=== PATIENT | male | born 1980 | race Caucasian/White ===

== ENCOUNTER 2017-01-06 18:45 | Emergency (ER) | payer MEDICAID ==
[2017-01-06 18:52] VITALS: RESP 16; TEMP 97.9
[2017-01-06] MEDS ORDERED: NS 1,000 ML IV ONE (19:46)
--- NOTE | 2017-01-06 19:46 | EDPHY ---
HPI/HX/ROS/PE/MDM Narrative: CHIEF COMPLAINT: Joint pain HPI: The patient is a 36 y/o male complaining of bone and joint pain and muscle weakness onset 2 to 3 weeks ago. He has pain in the bones and joints of his fingers, hands, elbows, neck, and legs with the worst pain localized to his neck. His weakness makes getting out of bed, showering, and working difficult. He has had difficulty sleeping for the past 3 to 4 days. He has tried Advil, Tylenol, and melatonin without significant improvement in symptoms. He does not that the pain is worse when he takes his antidepressant (Zoloft). He denies recent fever, rhinorrhea, cold, or other associated symptoms. REVIEW OF SYSTEMS: Aside from elements discussed in the HPI, a comprehensive 10-point review of systems was reviewed and is negative. 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 ENT:Eyes are normal to inspection. ENT inspection normal. Neck: Normal inspection. Full range of motion. No tenderness. Respiratory:No respiratory distress. Breath sounds normal bilaterally. Cardiovascular: Regular rate and rhythm. Normal cap refill. Abdomen:The abdomen is nontender to palpation. There are no peritoneal signs. There are normal bowel sounds. Back: Normal to inspection. No tenderness to palpation. Skin: Normal color. No rash. Warm and dry. Extremities: Normal appearance. Full range of motion. Neuro: Oriented x3. Normal motor function. Normal sensory function. ED Course: Labs are within normal limits. I reassessed patient and advised him to follow- up with his PCP for unimproved symptoms. Return precautions given. Patient agrees to this course of action. MDM: This is a relatively young healthy male with two weeks of diffuse myalgias and arthralgias. Despite this, he has a completely normal physical exam, with no apparent objective weakness, joint inflammation or limited ROM. I considered flu, but the symptoms have lasted two weeks, with no fever or infectious symptoms. I explained to the patient that we would perform screening labs for a medical emergency - these are thankfully negative. There is no evidence of leukocytosis, kidney or electrolyte abnormality. CK is normal. I think the patient would benefit from an auto-immune workup as an outpatient. The patient was treated with Toradol. He requested pain medication to help him sleep - I agreed to provide a very short of course of Lansford. - Data Points Laboratory Results: Laboratory Results 01/06/17 19:58 01/06/17 19:58 01/06/17 01/06/17 19:58 19:58 WBC 10.56 10^3/uL H 10^3/uL (3.80-9.50) RBC 5.18 10^6/uL 10^6/uL (4.40-6.38) Hgb 15.1 g/dL g/dL (13.7-17.5) Hct 44.4 % % (40.0-51.0) MCV 85.7 fL fL (81.5-99.8) MCH 29.2 pg pg (27.9-34.1) MCHC 34.0 g/dL g/dL (32.4-36.7) RDW 13.9 % % (11.5-15.2) Plt Count 249 10^3/uL 10^3/uL (150-400) MPV 9.1 fL fL (8.7-11.7) Neut % (Auto) 64.6 % % (39.3-74.2) Lymph % (Auto) 25.1 % % (15.0-45.0) Johnson % (Auto) 6.3 % % (4.5-13.0) Eos % (Auto) 2.9 % % (0.6-7.6) Baso % (Auto) 0.6 % % (0.3-1.7) Nucleat RBC Rel Count 0.0 % % (0.0-0.2) Absolute Neuts (auto) 6.83 10^3/uL H 10^3/uL (1.70-6.50) Absolute Lymphs (auto) 2.65 10^3/uL 10^3/uL (1.00-3.00) Absolute Monos (auto) 0.66 10^3/uL 10^3/uL (0.30-0.80) Absolute Eos (auto) 0.31 10^3/uL 10^3/uL (0.03-0.40) Absolute Basos (auto) 0.06 10^3/uL 10^3/uL (0.02-0.10) Absolute Nucleated RBC 0.00 10^3/uL 10^3/uL (0-0.01) Immature Gran % 0.5 % % (0.0-1.1) Immature Gran # 0.05 10^3/uL 10^3/uL (0.00-0.10) Sodium 144 mEq/L mEq/L (134-144) Potassium 3.5 mEq/L mEq/L (3.5-5.2) Chloride 107 mEq/L mEq/L (97-110) Carbon Dioxide 22 mEq/l mEq/l (22-31) Anion Gap 15 mEq/L mEq/L (8-16) BUN 12 mg/dL mg/dL (7-23) Creatinine 0.9 mg/dL mg/dL (0.7-1.3) Estimated GFR > 60 Glucose 88 mg/dL mg/dL (70-100) Calcium 9.2 mg/dL mg/dL (8.5-10.4) Creatine Kinase 89 IU/L IU/L (0-224) Medications Given: Discontinued Medications Hydrocodone Bitart/Acetaminophen (Lansford 5/325mg Prepack#6) 1 btl TAKEHOME EDNOW ONE Stop: 01/06/17 20:51 Last Admin: 01/06/17 20:54 Dose: 1 btl Sodium Chloride (Ns) 1,000 mls @ 0 mls/hr IV EDNOW ONE; Wide Open PRN Reason: Protocol Stop: 01/06/17 19:47 Last Admin: 01/06/17 20:05 Dose: 1,000 mls Ketorolac Tromethamine (Toradol) 15 mg IVP EDNOW ONE Stop: 01/06/17 20:09 Last Admin: 01/06/17 20:14 Dose: 15 mg General Time Seen by Provider: 01/06/17 19:33 Initial Vital Signs: Initial Vital Signs Temperature (C) 36.6 C 01/06/17 18:50 Heart Rate 96 01/06/17 18:50 Respiratory Rate 16 01/06/17 18:50 Blood Pressure 137/90 H 01/06/17 18:50 O2 Sat (%) 98 01/06/17 18:50 O2 Delivery Mode Room Air Allergies/Adverse Reactions: Penicillins Allergy (Unknown, Verified 09/03/11 22:11) Home Medications: Medication Instructions Recorded Sertraline Unk Dose 09/03/11 Sertraline HCl [Zoloft 20mg/ml 50 mg PO Q1 #20 09/03/11 oral liquid] Hydrocodone/APAP 5/325 [Lansford 1 - 2 tab PO Q4H PRN #20 tab 01/06/17 5/325 (RX)] Departure - Departure Disposition: Home, Routine, Self-Care Clinical Impression: Arthralgia Qualifiers: Joint pain location: unspecified Qualified Code(s): M25.50 - Pain in unspecified joint Condition: Good Instructions: Hydrocodone/Acetaminophen (By mouth), Arthralgia (ED) Additional Instructions: 1. Follow-up with your primary care provider for unimproved symptoms in 3-5 days. 2. Return for worsening of condition. Referrals: Emelyn Camejo DO [Doctor of Osteopathy] - As per Instructions Tin Jenkins DO [Doctor of Osteopathy] - As per Instructions Prescriptions: Hydrocodone/APAP 5/325 [Lansford 5/325 (RX)] 1 - 2 tab PO Q4H PRN #20 tab PRN Reason: Pain, Moderate Report Scribed for: Shane Lord Report Scribed by: Em Larson Date of Report: 01/06/17 Time of Report: 19:37 Physician Review and Approval Statement: Portions of this note were transcribed by an ED scribe. I personally performed the history, physical exam, and medical decision making; and confirm the accuracy of the information in the transcribed note.
[2017-01-06] MEDS ORDERED: KETOROLAC 30 MG/1 ML SDV IVP ONE (20:08)
[2017-01-06 20:15] LABS: % IMMATURE GRANULYOCYTES 0.5 % (0.0-1.1); ABSOLUTE IMMATURE GRANULOCYTES 0.05 10^3/uL (0.00-0.10); ADD DIFF? NO; ADD MORPH? NO; ADD SCAN? NO; ATYPICAL LYMPHOCYTE FLAG 0 (0-99); FRAGMENT RBC FLAG 0 (0-99); HEMATOCRIT 44.4 % (40.0-51.0); HEMOGLOBIN 15.1 g/dL (13.7-17.5); LEFT SHIFT FLG 0 (0-99); LIPEMIA HEMOLYSIS FLAG 90 (0-99); MEAN CELL HEMOGLOBIN 29.2 pg (27.9-34.1); MEAN CELL VOLUME 85.7 fL (81.5-99.8); MEAN PLATELET VOLUME 9.1 fL (8.7-11.7); PLATELET CLUMPS FLAG 20 (0-99); PLATELET COUNT 249 10^3/uL (150-400); RED BLOOD CELL COUNT 5.18 10^6/uL (4.40-6.38); RED CELL DISTRIBUTION WIDTH 13.9 % (11.5-15.2)
[2017-01-06 20:41] LABS: ANION GAP 15 mEq/L (8-16); CALCIUM 9.2 mg/dL (8.5-10.4); CARBON DIOXIDE 22 mEq/l (22-31); CHLORIDE 107 mEq/L (97-110); CREATININE 0.9 mg/dL (0.7-1.3); GLOMERULAR FILTRATION RATE > 60; GLUCOSE 88 mg/dL (70-100); POTASSIUM 3.5 mEq/L (3.5-5.2); SODIUM 144 mEq/L (134-144)
[2017-01-06] MEDS ORDERED: HYDROCOD/APAP 5/325 PREPACK#6 BTL TAKEHOME ONE (20:50)
[2017-01-06 20:57] VITALS: BP 133/84; PULSE 78; O2SAT 96
== END 2017-01-06 21:04 | disposition home or self-care (01) ==
DX: M25.50 Pain in unspecified joint (principal); E86.9 Volume depletion, unspecified
CPT/HCPCS: 96374; J1885

== ENCOUNTER 2017-12-01 12:41 | Emergency (ER) | payer SELFPAY ==
[2017-12-01 13:30] LABS: PLATELET COUNT 298 10^3/uL (150-400)
--- NOTE | 2017-12-01 15:51 | EDPHY ---
H & P Smoking Status: Never smoked Time Seen by Provider: 12/01/17 13:28 HPI/ROS: CHIEF COMPLAINT: Depression, anxiety HISTORY OF PRESENT ILLNESS: 37-year-old male presents to the emergency department feeling depressed and anxious. He states that he is prescribed Zoloft 200 mg daily and feels that this is making him sick. He feels overwhelmed and is unable to shower in the last 4 days. He also states that he has been unable to eat and go to work because he just cannot function. He describes pain in his upper extremities. This has been present for over 1 year. He denies any known injury. He is concerned that the myalgias and arthralgias are related to the medication. He has had suicidal thoughts although no plan. No homicidal ideation. No auditory visual hallucinations. He has seen a psychiatrist to want to put him on additional medication which she did not want to do. He has not seen a therapist. REVIEW OF SYSTEMS: Constitutional: No fever, no chills. Eyes: No double or blurry vision. ENT: No sore throat. Respiratory: No cough, no shortness of breath. Cardiac: No chest pain. Gastrointestinal: No abdominal pain, vomiting or diarrhea. Genitourinary: No dysuria. Musculoskeletal: Pain in upper extremities bilaterally. No neck or back pain. Skin: No rashes. Neurological: No headache. (Damari Jones M) Past Medical/Surgical History: Depression, anxiety (Robert,Damari M) Social History: Single, anorexia (Robert,Damari M) Physical Exam: General Appearance: Alert, no distress. Eyes: Pupils equal and round. Extraocular motions are all intact. ENT: Mouth: Mucous membranes moist. Respiratory: No wheezing, rhonchi, or rales, lungs are clear to auscultation. Cardiovascular: Regular rate and rhythm. Gastrointestinal: Abdomen is soft and nontender, no masses, no rebound or guarding, bowel sounds normal. Neurological: Alert and oriented x 3, cranial nerves II through XII grossly intact Skin: Warm and dry, no rashes. Musculoskeletal: Nontender to palpate along the cervical, thoracic or lumbar spine. Neck is supple. Extremities: Full range of motion and no peripheral edema. No joint swelling. Psychiatric: Patient is oriented X 3, there is no agitation. (Tere Jonesa M) Constitutional: Initial Vital Signs Temperature (C) 36.5 C 12/01/17 12:48 Heart Rate 81 12/01/17 12:48 Respiratory Rate 16 12/01/17 12:48 Blood Pressure 126/96 H 12/01/17 12:48 O2 Sat (%) 97 12/01/17 12:48 O2 Delivery Mode Room Air Allergies/Adverse Reactions: Penicillins Allergy (Unknown, Verified 09/03/11 22:11) Home Medications: Medication Instructions Recorded Sertraline HCl [Zoloft 20mg/ml 50 mg PO Q1 #20 09/03/11 oral liquid] Medical Decision Making ED Course/Re-evaluation: 37-year-old male feeling depressed and extremely anxious. He feels that this is related to his Zoloft 200 mg that he takes daily. He agrees to talk with mental health. He has been medically cleared and is awaiting mental health evaluation. Because of his myalgias and arthralgias, sed rate was ordered which was normal which was 3. (Damari Jones) Differential Diagnosis: Depression including functional and major depression, situational depression, medication side effect, drugs and alcohol abuse. (Damari Jones) Other Provider: The patient was evaluated and managed by the Physician Utility Driver. [I discussed the patient's presentation and course with the midlevel provider with them and agree with the evaluation.] My co-signature indicates that I have reviewed this chart and I agree with the findings and plan of care as documented. I am the secondary supervising physician. Patient was evaluated by Kiah from Mental Health once medically cleared. Patient does not meet criteria for inpatient admission. Review of the patient' s chart indicates that he has had a somewhat thorough evaluation for his complaints of generalized joint pain and muscle pain. He was advised to follow up with his psychiatrist regarding his dose of Zoloft as well as to follow up again with his primary care physician, Dr. Jenkins, to address the muscle pain which he is complaining of. (Nely Torres) Care Turn Over: Care will be turned over to Dr. Nely Torres, secondary supervising physician. ( Damari Jones) - Data Points Laboratory Results: Laboratory Results 12/01/17 13:16 12/01/17 13:16 Medications Given: Discontinued Medications Ibuprofen (Motrin) 600 mg PO EDNOW ONE Stop: 12/01/17 17:35 Last Admin: 12/01/17 17:42 Dose: 600 mg Lorazepam (Ativan 1 Mg Prepack#4) 1 btl BRAEDEN EDNOW ONE Stop: 12/01/17 19:17 Last Admin: 12/01/17 19:22 Dose: 1 btl Departure - Departure Disposition: Home, Routine, Self-Care Clinical Impression: Failure to thrive syndrome, adult Depression Qualifiers: Depression Type: unspecified Qualified Code(s): F32.9 - Major depressive disorder, single episode, unspecified Condition: Good Instructions: Lorazepam (By mouth), Depression (ED), Arthritis (ED) Additional Instructions: Please follow up as soon as possible with Dr. Jenkins regarding your ongoing and worsening muscle pain and joint pain. Please follow up with your therapist regarding your Zoloft dose. If he feel at Zoloft may be contributing to your muscle pain and joint pain, there are other antidepressants which may be considered. Please consider adjunct therapies for your muscle and joint pains such as acupuncture, massage therapy, and others as suggested by mental health. You may take Ativan as needed for sleep; 1/2 to 1 mg at night. Referrals: Tin Jenkins DO [Primary Care Provider] - As per Instructions
[2017-12-01] MEDS ORDERED: IBUPROFEN 600 MG TAB PO ONE (17:34)
[2017-12-01 18:06] LABS: CREATINE KINASE 45 IU/L (0-224)
[2017-12-01] MEDS ORDERED: LORAZEPAM 1 MG PREPACK#4 BTL TAKEHOME ONE (19:16)
[2017-12-01 19:25] VITALS: BP 136/72
--- NOTE | 2017-12-01 19:40 | ASMTTLCEVL ---
TLC Evaluation - Basic Information Evaluation Start Date and 12/01/2017 05:45 PM Time Hospital Status Answers: M1 Hold 72-hr M1 Hold Start Date 12/01/2017 03:57 PM and Time Patient statement Notes: I'm having severe joint and muscle pain. I've had a hard time even getting out of bed and showering the past few days, my sleep is horrible. I started taking Zoloft 8 years ago. Since taking the Zoloft I've been progressively getting worse with the pain over the years. I am not suicidal. Do I ever think of suicide? Well yes, but I would never act on it because I have a lot to live for. I just want help with the pain. I'm normally a highly functioning person but this pain is what is causing me to be depressed. I came here today to get help for my pain and to see if I could be helped. I want to feel better. Narrative Notes: Pt is a 37 year old, male who self presented to the [facility] ED due to depression and symptoms of anxiety. Pt stated he has been depressed for a while and on medications. His medications he does not feel are helping him and recently he was prescribed Zoloft 200 mg daily which makes him feel sick. Pt reports he feels recently overwhelmed and is unable to shower in the last 4 days. Pt also stated he has been unable to eat and go to work because he just can't function. Pt had described pain in his upper extremities. This has been present for the past year. Pt had denied any known injuries. Pt expressed concern about physical reaction to medications. Pt reported suicidal thoughts with no plan. No homicidal thoughts were reported. Pt also denied any auditory of visual hallucinations. Pt recently saw a Psychiatrist and they want to put him on another medication. Pt's utox was negative expect for benzodiazepines. Pt is given Ativan in the ED. Diagnosis History Notes: Pt stated he started experiencing significant depression about 8 years ago resulting in a hospitalization and starting antidepressant medications. Prior suicide attempts Notes: Pt denied any prior suicide attempts. Prior hospitalizations Notes: Pt was hospitalized on [address] [facility] in 2010 for depression. He was discharged on a dose of 200 mg. Treatment Responses Notes: Pt feels since starting the Zoloft he has progressively been experiencing physical pain and weakness. History of violence Notes: Pt denied any hx of violence. Therapist: Dr. Petey Amaya Psychiatrist: Dr. Jenkins Medications (name, dosage, route, freq uency) Notes: Zoloft 200 mg. Pt has tried other medications in the past such as Wellbutrin and Lexapro with no results. Allergies/Reaction Notes: Penicillin Sleep Notes: Pt reported his sleep has been disturbed due to chronic pain. Appetite Notes: Pt denied any weight changes or appetite loss. Medical/Surgical history Notes: Pt has experienced increased pain over the past 8 years since he feels due to starting the Zoloft medications. Substance use history (frequency, intensity, his tory, duration) Notes: Pt denied any hx of substance abuse or use. His utox was negative for alcohol and other substances. Family composition Notes: Pt's parents 20 years ago. His mother and 1 local brother are supportive and in the area. Pt also feels supported by his other brother who lives in [place]. Need for family Answers: No participation in patient's care Family psychiatric/substance abuse history Notes: No report of any family hx of substance abuse or psychiatric problems. Developmental history Notes: Pt denied any developmental delays or any past dx of ADD or ADHD. Pt also denied any hx of LOC, head injury or concussion. Abuse concerns Answers: None Marital status/children Notes: Pt is single with no children. Living situation Notes: Pt lives alone. Sexual history/orientation Notes: Pt is heterosexual. Has not been in a relationship for several years. Pt stated he feels the medicatio has taken away his sex drive and expressed frustration with this loss of pleasure. Peer support/family strengths Notes: Pt reports he has friends and supportive family members. Education level/history Notes: Pt completed college and a law degree from [employer]. 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 Notes: Pt has no hx. Legal Notes: Pt denied any legal problems or hx. Holiness/Spiritual Notes: Pt did not identify any samaritan or spiritual beliefs that would impact his treatment. Leisure Notes: Pt reported with his depression he has lost interest in former enjoyed activities. In the past he enjoyed skiing, traveling and biking. Collateral Notes: Collateral information was obtained from pt.'s previous records. Patient's strengths Answers: Good Friend to Others (Please select at least TWO strengths): Intelligent Motivated for Treatment Responsible/Dependable Supportive Family Willingness TLC Evaluation - Mental Status Exam Appearance: Answers: Unkempt Eye Contact: Answers: Good/Direct Mood: Answers: Depressed Sad Affect: Answers: Apprehensive Sad Behavior: Answers: Appropriate Cooperative Speech: Answers: Relevant Logical Clear Coherent Thought Process: Answers: Organized Oriented Alert Intact Judgement: Answers: Good Depression Answers: Diminished Interest Signs/Symptoms: Diminished Pleasure Sad Mood Withdrawn Anxiety Signs/Symptoms Answers: Generalized Anxiety Hallucinations: Answers: None Current Stage of Change Answers: Action Pt reported to have Answers: No suicidal/self-injuring ideation/behavior? Pt reported to be making Answers: No suicidal/self-injuring threats? Pt reported to have Answers: No aggression/assault ideation/behavior? Pt exhibits inability to Answers: No care for self/grave disability? Ideation/behavior is Answers: No chronic? Patient has a specific Answers: No plan? Ideation has Answers: No delusional/hallucinatory content? History of Answers: No suicidal/self-injuring ideation, behavior, or threats? History of serious Answers: No physical harm to self/others while in treatment setting? [facility] Evaluation - Suicide/Homicide Risk Suicide Risk Factors: Answers: Major Depression Serious Health Issue, Pain None Current Suicidal Answers: No Ideation? Current Suicidal Ideation Answers: No in the Past 48 Hours? Current Suicidal Ideation Answers: No in the Past Month? Current Suicidal Answers: No Ideation, Worst Ever? Suicide Internal Answers: Absence of Psychosis Protective Factors: Frustration Tolerance Baltazar with Stress Suicide External Answers: Positive Therapeutic Protective Factors: Relationships Responsibility to Pets Other Notes: Family Ranking of patient's Answers: Low suicidal risk: Ranking of patient's Answers: Low homicidal risk: [facility] Evaluation - Wrap-up AXIS I Diagnosis (include DSM-V and ICD-10 codes), must also be entered in [employer], which is the source of truth. Notes: Major Depressive Disorder, recurrent, moderate 296.32 (F33.1) Unspecified Anxiety Disorder 300.00 (F41.9) Evaluation End Date and 12/01/2017 07:40 PM Time (HH:MM): Date Signed: 12/01/2017 07:40 PM Electronically Signed By:Kiah Vazquez
--- NOTE | 2017-12-01 19:49 | ASMTTCLDSP ---
TLC Discharge Disposition Disposition: Answers: Discharge If Answers: Yes DISCHARGED: Patient/family given suicide hotline info & SAMHSA brochure? Disposition Notes: Notes: In consultation with [facility] ED Physician, Dr Nely Torres and labor utilization superintendent Psyciatrist, Dr. Bobby Potter both concurred pt does not appear to meet 27-65 criteria requiring psychiatric hospitalization as pt does not appear to be an imminent risk of harm to self/others/gravely disabled due to a mental illness condition. Dr Bobby Potter vacated M1 hold at 18:40. Discharge Concerns/Recommendations: Notes: Pt. was offered voluntary mental health admission yet pt declined. Pt stated commitment or ability to keep self safe, denied thoughts of self harm or harm to others. Pt expressed a desire to f/u and consider alternative treatment methods in conjuction with exploring alternative treatment options such as Chiropractor, hydro therapy, acupuncture, PT, pain medication, stress management, cognitive therapy. Pt appeared interested and motiviated to explore additional treatment options. Pt was given local hotline information and SAMHSA brochure After an Attempt Was patient given the Answers: Not applicable Inpatient Behavioral Health Prohibited Belongings List while in the ED? Date and time M1 hold 12/01/2017 06:40 PM vacated (time format is hh:mm): Type of Hold: Answers: M1/72-hour Hold Hold initiated by: Answers: Psychiatrist Date Signed: 12/01/2017 07:48 PM Electronically Signed By:Kiah Vazquez
== END 2017-12-01 19:25 | disposition home or self-care (01) ==
DX: F32.9 Major depressive disorder, single episode, unspecified (principal); F41.9 Anxiety disorder, unspecified
CPT/HCPCS: 80305